=== PATIENT | female | born 1930 | race Caucasian/White ===

== ENCOUNTER 2017-05-21 08:53 | Inpatient (IN) | payer BC, OTHER ==
--- NOTE | 2017-05-21 09:19 | PDOC ---
History of Present Illness - General History Source: Patient, Family Exam Limitations: No Limitations - History of Present Illness Initial Comments: 05/21/17 09:47 The patient is an 86 year old female with a significant PMH of HTN, diabetes ( on Metformin), hyperlipidemia, and stroke who presents to the emergency department with hearing voices beginning sometime within the past 2 months. The patient notes that she regularly hears voices and becomes paranoid. Her son notes that the patient was in the [place] for a couple of months and her neighbors started noticing a change in her behavior within that time. The patients son visited the [facility] about 3 days ago to check on the patient, and brought her to [place] ED after becoming concerned. The patient s son notes that the patient had a stroke about 2 months ago that affected her right upper and lower extremities, and that she has occasionally mumbled her speech. The patients son also notes that the patient suffered a mechanical fall while in the [facility]. The patient also presents to the ED with an abscess in the abdominal area. The patients speech is slightly slurred upon presentation the ED. The patient denies chest pain, shortness of breath, headache and dizziness. Denies fever, chills, nausea, vomit, diarrhea and constipation. Denies dysuria, frequency, urgency and hematuria. Allergies: NKA Past surgical history: Vascular surgery for leg clot (2002). Social history: No reported cigarette, alcohol, or drug use. PCP: Dr. Taylor ([phone]) <Mark Brown - Last Filed: 05/21/17 09:56> <Rbob Wetzel - Last Filed: 05/21/17 11:21> - General Chief Complaint: Altered Mental Status Stated Complaint: abcess,ams x 4 days Time Seen by Provider: 05/21/17 09:17 NIH Stroke Scale - Initial Evaluation Level of consciousness: Alert Ask patient the month and their age: Answers both correctly Ask patient to open & close eyes; make fist and let go: Obeys both correctly Best gaze (horizontal eye movement): Normal Visual field testing: No visual field loss Facial paresis (Show teeth/raise eyebrows/close eyes tight): Normal symmetrical movement Motor Function: Left Arm: Normal Motor Function: Right Arm: Drift Motor Function: Left Leg: Normal (extends leg 30 degrees for 5 seconds without drift) Motor Function: Right Leg: Normal (extends leg 30 degrees for 5 seconds without drift) Limb Ataxia: Present in one limb Sensory(Use pinprick test arms,legs,trunk,face/side to side): Normal Best language (Describe picture, name items, read sentences): No Aphasia Dysarthria (read several words): Mild to moderate slurring of words Extinction and Inattention: No abnormality (last known well unknown, symptoms identified 05/18) - Total Score NIH Stroke Scale Score: 3 <Robb Wetzel - Last Filed: 05/21/17 11:21> tPA Exclusion checklist 3-4.5h - Thrombolytic Therapy Candidate Is patient eligible for thrombolytic therapy: No - Ineligibility reason(s) Reasons No tPA given: Outside of window - delayed arrival <Robb Wetzel - Last Filed: 05/21/17 11:21> Past History <Mark Brown - Last Filed: 05/21/17 09:56> - Past Medical History CVA: Yes (rt side residual) Diabetes: Yes HTN: Yes Hypercholesterolemia: Yes - Surgical History Cardiac Surgery: Yes (vena cava filter) - Psycho/Social/Smoking Cessation Hx Suicidal Ideation: No Smoking History: Never smoked <Robb Wetzel - Last Filed: 05/21/17 11:21> - Past Medical History Allergies/Adverse Reactions: Allergies Allergy/AdvReac Type Severity Reaction Status Date / Time No Known Allergies Allergy Verified 05/21/17 08:58 Home Medications: Ambulatory Orders Enoxaparin Sodium [Lovenox] 120 mg SQ DAILY 05/21/17 Glimepiride [Amaryl -] 4 mg PO DAILY@0700 05/21/17 Losartan Potassium 50 mg PO DAILY 05/21/17 Metformin HCl [Metformin HCl ER] 1,000 mg PO BID 05/21/17 Metoprolol Succinate [Toprol Xl -] 50 mg PO BID 05/21/17 Review of Systems - Review of Systems Able to Perform ROS?: (limited 2/2 dementia) Constitutional: No: Chills, Fever, Night Sweats Respiratory: No: Cough, Shortness of Breath Cardiac (ROS): No: Chest Pain, Syncope ABD/GI: No: Constipated, Diarrhea, Nausea, Vomiting Neurological: No: Headache All Other Systems: Reviewed and Negative <Robb Wetzel - Last Filed: 05/21/17 11:21> *Physical Exam - Vital Signs Last Vital Signs Temp Pulse Resp BP Pulse Ox 98.2 F 76 19 120/65 95 05/21/17 08:58 05/21/17 08:58 05/21/17 08:58 05/21/17 08:58 05/21/17 08:58 - Physical Exam Comments: 05/21/17 09:48 GENERAL: (+) Slightly disoriented. (+) Slight slurred speech. The patient is awake, alert, in no acute distress. HEAD: Normal with no signs of trauma. EYES: Pupils equal, round and reactive to light, extraocular movements intact, sclera anicteric, conjunctiva clear with no pallor. ENT: Ears normal, nares patent, oropharynx clear without exudates. Moist mucous membranes. NECK: Normal range of motion, supple without lymphadenopathy, JVD, or masses. LUNGS: (+) Crackles at right base. Breath sounds equal. HEART: Regular rate and rhythm, normal S1 and S2 without murmur or rub. ABDOMEN: (+) 8 cm. Subcutaneous hematoma in the suprapubic region with 2 cm. cellulitis (No discharge, fluctuance, or bleeding). Soft/nontender/ nondistended. BS wnl. No guarding or rebound. No hepatosplenomegaly. EXTREMITIES: 4/5 motor strength and spastic movement in RUE. 5/5 motor strength in RLE. Normal range of motion, no edema. No clubbing or cyanosis. No cords, erythema, or tenderness. NEUROLOGICAL: Cranial nerves II through XII grossly intact. Normal speech, normal gait. PSYCH: Normal mood, normal affect. SKIN: Warm, Dry, normal turgor, no rashes or lesions noted. <Mark Brown - Last Filed: 05/21/17 09:56> - Vital Signs Last Vital Signs Temp Pulse Resp BP Pulse Ox 98.2 F 76 19 120/65 95 05/21/17 08:58 05/21/17 08:58 05/21/17 08:58 05/21/17 08:58 05/21/17 08:58 <Robb Wetzel - Last Filed: 05/21/17 11:21> Heart Score/ECG Review #1 ECG reviewed & interpreted by me at: 10:06 General ECG Interpretation: Sinus Rhythm, Normal Rate (66), Normal Intervals ( qtc 404), No acute ischemic changes <Robb Wetzel - Last Filed: 05/21/17 11:21> ED Treatment Course - LABORATORY CBC & Chemistry Diagram: 05/21/17 09:50 05/21/17 09:50 <Robb Wetzel - Last Filed: 05/21/17 11:21> Medical Decision Making - Medical Decision Making 05/21/17 09:50 A portion of this note was documented by scribe services under my direction. I have reviewed the details of the note, within reason, and agree with the documentation with the following case summary and management plan written by me. 86-year-old female with history of hypertension, diabetes, high cholesterol, recent stroke in the last 2 months with residual right-sided weakness presents brought in by her son with altered mental status are unknown amount of time. Patient was high functioning and oriented when she went to the [place] 2 months ago, son visited her a few days ago and found her to be confused and occasionally having nonsensical speech and hearing voices. There was a fall in the last few weeks, unclear whether there was head injury. Denies any recent fevers or chills or infectious symptoms, she does have residual right -sided weakness since the stroke. No new medications, she was prescribed a benzodiazepine to help her sleep but it has not been working. Heart Her Back in the [place] and Brings Her Here for Evaluation. Vitals as noted and within normal limits. No acute distress Slightly slurred speech, right upper extremity 4-5 strength with some spastic movements Ecchymosis across the lower abdomen reportedly from anticoagulant injections, there is a moderate size about 8 cm hematoma in the lower abdomen with a small rim of cellulitis but no evidence of abscess 86-year-old female with altered mental status as per son, recent CVA. Question dementia with delirium, ? cva (unclear last known well without clear new focal deficits, so not a tpa candidate), troponin, rule out intracranial process or acute infectious or metabolic process, otherwise no other focal findings on exam aside from the cellulitis. Labs, urinalysis/urine culture Chest x-ray, CT head, EKG Antibiotic for abdominal wall cellulitis Likely admission 05/21/17 11:14 cbc wnl, cxr with large heart but no acute abnormality. CT head with chronic microvascular ischemic changes, frontal post-ischemic encephalomalacia which could be the cause of her presenting symptoms. Chem pending, then will admit for further neuro workup. <Robb Wetzel - Last Filed: 05/21/17 11:21> *DC/Admit/Observation/Transfer - Attestations Scribe Attestion: 05/21/17 09:48 Documentation prepared by Mark Brown, acting as medical technical writer for Robb Wetzel MD. <Mark Brown - Last Filed: 05/21/17 09:56> <Robb Wetzel - Last Filed: 05/21/17 11:21> Diagnosis at time of Disposition: Abdominal wall cellulitis, History of stroke Altered mental status Qualifiers: Altered mental status type: transient alteration of awareness Qualified Code(s) : R40.4 - Transient alteration of awareness Abdominal wall hematoma Qualifiers: Encounter type: initial encounter Qualified Code(s): S30.1XXA - Contusion of abdominal wall, initial encounter - Discharge Dispostion Condition at time of disposition: Stable - Referrals Referrals: Mary Beth Price MD [Primary Care Provider] -
[2017-05-21] MEDS ORDERED: AMPICILLIN NA/SULBACTAM NA 3 GM in SODIUM CHLORIDE 100 ML IVPB ONE (09:55)
[2017-05-21 10:03] LABS: BASOPHIL 0.7 % (0-2.0); EOSINOPHIL 1.9 % (0-4.5); MCH 25.9 pg (25.7-33.7); MCHC 32.6 g/dl (32.0-36.0); MEAN CELL VOLUME 79.6 fl (80-96); MEAN PLT VOLUME 8.4 fl (7.5-11.1); NEUTROPHILS 70.7 % (42.8-82.8); PLATELET COUNT 258 K/MM3 (134-434); RDW 15.4 % (11.6-15.6); WHITE BLOOD COUNT 7.6 K/mm3 (4.0-10.0)
[2017-05-21 10:15] LABS: URINE APPEARANCE CLEAR; URINE BILIRUBIN NEGATIVE (NEGATIVE); URINE BLOOD 1+ (NEGATIVE); URINE COLOR LTYELLOW; URINE GLUCOSE (UA) NEGATIVE (NEGATIVE); URINE KETONE NEGATIVE (NEGATIVE); URINE LEUK ESTERASE TRACE (NEGATIVE); URINE NITRITE NEGATIVE (NEGATIVE); URINE PROTEIN NEGATIVE (NEGATIVE); URINE UROBILINOGEN NEGATIVE mg/dL (0.2-1.0)
[2017-05-21 10:25] LABS: URINE RBC <1 /hpf (0-3); URINE WBC 3 /hpf (3-5)
[2017-05-21 10:26] LABS: ALBUMIN 3.4 g/dl (3.4-5.0); ANION GAP 10 (8-16); CALCIUM 9.1 mg/dL (8.5-10.1); CO2 27 mmol/L (21-32); CREATININE 1.1 mg/dL (0.55-1.02); GLUCOSE,RANDOM 162 mg/dL (74-106); SGOT/AST 30 U/L (15-37); SGPT/ALT 28 U/L (12-78)
[2017-05-21 10:40] LABS: INR 1.16 (0.82-1.09); PROTHROMBIN TIME (PATIENT) 12.8 SEC (9.98-11.88)
[2017-05-21 10:54] LABS: ALK PHOS 46 U/L (45-117); BILIRUBIN,TOTAL 0.9 mg/dL (0.2-1.0); CPK 380 IU/L (26-192); TOT PROT 7.3 g/dl (6.4-8.2); TROPONIN I < 0.02 ng/ml (0.00-0.05)
--- NOTE | 2017-05-21 12:15 | EKG ---
Test Reason : Blood Pressure : / mmHG Vent. Rate : 066 BPM Atrial Rate : 066 BPM P-R Int : 166 ms QRS Dur : 080 ms QT Int : 386 ms P-R-T Axes : 063 002 029 degrees QTc Int : 404 ms NORMAL SINUS RHYTHM NORMAL ECG NO PREVIOUS ECGS AVAILABLE Confirmed by NAREN VILLALBA MD ([id number]) on 05/21/2017 12:14:59 PM Referred By: Confirmed By:NAREN VILLALBA MD
--- NOTE | 2017-05-21 14:23 | HP ---
Admitting History and Physical - Primary Care Physician PCP: Mary Beth Price - Admission Chief Complaint: AMS History of Present Illness: This 86 year old female with a significant PMH of HTN, DM II (on Metformin), HLD , DVT, PE in 2000 surgical hx: Vascular surgery for leg clot (2002 at [facility] ), per [facility] records sustained a catastrophic thrombotic event in 2000 (and now on daily lovenox) and stroke presented to the ED with auditory hallucinations and AMS. Pt Son visited and after 3 days he found his mother altered and talking to herself. He asked her who she was talking to and she stated when she was talking she admitted to auditory hallucinations and he decided [place]. [place] at [place] baseline living with her children, she was in for 3 months when daughter moved. The son states around 2 months ago she suffered a stroke with right sided weakness and mumbled speech and is not at her baseline. Patient currently appears calm and is able to follow directions. She denies sob , cp, abd pain. She is hungry. Son also states she hasn't been sleeping and when she does she wakes up speaking nonsense. 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) Cardiovascular: Yes: HTN, Hyperlipdemia Heme/Onc: Yes: Other (thromobotic event 2000) Endocrine: Yes: Diabetes Mellitus - Smoking History Smoking history: Never smoked - Alcohol/Substance Use Hx Alcohol Use: No History of Substance Use: reports: None - Social History Usual Living Arrangement: Yes: With Child ADL: Family Assistance History of Recent Travel: Yes (Returned from 05/20) Home Medications - Allergies Allergies/Adverse Reactions: Allergies Allergy/AdvReac Type Severity Reaction Status Date / Time No Known Allergies Allergy Verified 05/21/17 08:58 - Home Medications Home Medications: Ambulatory Orders Enoxaparin Sodium [Lovenox] 120 mg SQ DAILY 05/21/17 Glimepiride [Amaryl -] 4 mg PO DAILY@0700 05/21/17 Losartan Potassium 50 mg PO DAILY 05/21/17 Metformin HCl [Metformin HCl ER] 1,000 mg PO BID 05/21/17 Metoprolol Succinate [Toprol Xl -] 50 mg PO BID 05/21/17 Review of Systems - Review of Systems Constitutional: reports: No Symptoms Eyes: reports: No Symptoms HENT: reports: No Symptoms Neck: reports: No Symptoms Cardiovascular: reports: No Symptoms Respiratory: reports: No Symptoms Gastrointestinal: reports: No Symptoms Genitourinary: reports: No Symptoms Musculoskeletal: reports: No Symptoms Integumentary: reports: No Symptoms Neurological: reports: Change in LOC, Confusion, Weakness (right side) Psychiatric: reports: Altered Sleep Pattern Physical Examination Vital Signs: Vital Signs Temperature 98.2 F 05/21/17 08:58 Pulse Rate 61 05/21/17 13:10 Respiratory Rate 20 05/21/17 13:10 Blood Pressure 143/77 05/21/17 13:10 O2 Sat by Pulse Oximetry (%) 97 05/21/17 13:10 Constitutional: Yes: Calm Eyes: Yes: Conjunctiva Clear Neck: Yes: Supple Cardiovascular: Yes: Regular Rate and Rhythm, S1, S2 Respiratory: Yes: Regular, CTA Bilaterally Gastrointestinal: Yes: Normal Bowel Sounds, Soft, Other (lower abdominal hematomas lower abd induraded mass with hematoma) Extremities: Yes: WNL Edema: No Neurological: Yes: Alert, Oriented, Cran Nerves II-XII Intact, Other (motor: RUE 4/5, RLE 5/5 follows direction, able to answer qustions) Psychiatric: Yes: Alert, Oriented Imaging - Results X-ray: Report Reviewed, Image Reviewed (no acute pathology) Cat Scan: Image Reviewed (no acute intercranial hemorrhage, chronic post ischemic encephalomalacia right frontal lobe, no acute territorial ischemic changes,) Assessment/Plan Assessment: 86 year old female admitted with AMS and recent cva ~ 2 months ago Plan: 1. AMS - Head CT negative for acute changes - AMS possibly referable to post CVA penumbra - Brain MRI r/o CVA as pt with slurred speech in ED - Start ASA 81mg daily - B12, TSH, UA levels - Neuro consult requested 2. HTN - Continue toprol xl 50mg BID - Losartan 25mg daily 3. hx of CVA/PE - Pt sustained a catastrophic thrombotic event involving arterial and venous systems in 2000 at [facility]. Due to this she is on daily lovenox 120mg sq and should not be stopped. - To reiterate with family this should not be discontinued 4. DM II - Hold metformin - ISS, BGM ACHS - Diabetic diet 5. lower abdominal collection/hematoma? - Abd US ordered Visit type - Emergency Visit Emergency Visit: Yes ED Registration Date: 05/21/17 Care time: The patient presented to the Emergency Department on the above date and was hospitalized for further evaluation of their emergent condition. - New Patient This patient is new to me today: Yes Date on this admission: 05/22/17 - Critical Care Critical Care patient: No
[2017-05-21 15:13] VITALS: BMI 28.2
--- NOTE | 2017-05-21 17:47 | CON.NEURO ---
Consult - History of Present Illness History of Present Illness: 86 year old female with a significant PMH of HTN, DM II (on Metformin), AFIB , HLD, DVT, PE in 2000 surgical hx, requiring lifelong AC as per HEM: Vascular surgery for leg clot (2002 at [facility])and stroke presented to the ED with auditory hallucinations and AMS. As per team , Pt Son visited and after 3 days he found his mother altered and talking to herself. He asked her who she was talking to and she stated when she was talking she admitted to auditory hallucinations and he decided [place]. [place] living with her children, she was in for 3 months when daughter moved. The son states around 2 months ago she suffered a stroke with right sided weakness and mumbled speech and is not at her baseline. Patient currently appears calm and is able to follow directions. She denies sob , cp, abd pain. She is hungry. Son also states she hasn't been sleeping and when she does she wakes up speaking nonsense. 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) Cardio/Vascular: Yes: HTN, Hyperlipdemia ...: No Endocrine: Yes: Diabetes Mellitus - Alcohol/Substance Use Hx Alcohol Use: No History of Substance Use: reports: None - Smoking History Smoking history: Never smoked - Social History ADL: Family Assistance History of Recent Travel: Yes (Returned from 05/20) Home Medications - Allergies Allergies/Adverse Reactions: Allergies Allergy/AdvReac Type Severity Reaction Status Date / Time No Known Allergies Allergy Verified 05/21/17 08:58 - Home Medications Home Medications: Ambulatory Orders Enoxaparin Sodium [Lovenox] 120 mg SQ DAILY 05/21/17 Glimepiride [Amaryl -] 4 mg PO DAILY@0700 05/21/17 Losartan Potassium 50 mg PO DAILY 05/21/17 Metformin HCl [Metformin HCl ER] 1,000 mg PO BID 05/21/17 Metoprolol Succinate [Toprol Xl -] 50 mg PO BID 05/21/17 Physical Exam-Neuro Vital Signs: Vital Signs Temperature 97.7 F 05/21/17 14:48 Pulse Rate 60 05/21/17 14:48 Respiratory Rate 18 05/21/17 14:48 Blood Pressure 156/68 05/21/17 14:48 O2 Sat by Pulse Oximetry (%) 97 05/21/17 13:10 Labs: INR, PTT INR 1.16 (0.82-1.09) H 05/21/17 09:50 CBCD WBC 7.6 K/mm3 (4.0-10.0) 05/21/17 09:50 RBC 5.32 M/mm3 (3.60-5.2) H 05/21/17 09:50 Hgb 13.8 GM/dL (10.7-15.3) 05/21/17 09:50 Hct 42.3 % (32.4-45.2) 05/21/17 09:50 MCV 79.6 fl (80-96) L 05/21/17 09:50 MCHC 32.6 g/dl (32.0-36.0) 05/21/17 09:50 RDW 15.4 % (11.6-15.6) 05/21/17 09:50 Plt Count 258 K/MM3 (134-434) 05/21/17 09:50 MPV 8.4 fl (7.5-11.1) 05/21/17 09:50 CMP Sodium 140 mmol/L (136-145) 05/21/17 09:50 Potassium 4.0 mmol/L (3.5-5.1) 05/21/17 09:50 Chloride 103 mmol/L (98-107) 05/21/17 09:50 Carbon Dioxide 27 mmol/L (21-32) 05/21/17 09:50 Anion Gap 10 (8-16) 05/21/17 09:50 BUN 12 mg/dL (7-18) 05/21/17 09:50 Creatinine 1.1 mg/dL (0.55-1.02) H 05/21/17 09:50 Creat Clearance w eGFR 46.98 (>60) 05/21/17 09:50 Calcium 9.1 mg/dL (8.5-10.1) 05/21/17 09:50 Total Bilirubin 0.9 mg/dL (0.2-1.0) 05/21/17 09:50 AST 30 U/L (15-37) 05/21/17 09:50 ALT 28 U/L (12-78) 05/21/17 09:50 Alkaline Phosphatase 46 U/L (45-117) 05/21/17 09:50 Total Protein 7.3 g/dl (6.4-8.2) 05/21/17 09:50 Albumin 3.4 g/dl (3.4-5.0) 05/21/17 09:50 Problem List - Problems (1) Altered mental status Code(s): R41.82 - ALTERED MENTAL STATUS, UNSPECIFIED Qualifiers: Altered mental status type: transient alteration of awareness Qualified Code(s): R40.4 - Transient alteration of awareness (2) H/O: CVA (cerebrovascular accident) Code(s): Z86.73 - PRSNL HX OF TIA (TIA), AND CEREB INFRC W/O RESID DEFICITS (3) Dementia Code(s): F03.90 - UNSPECIFIED DEMENTIA WITHOUT BEHAVIORAL DISTURBANCE Assessment/Plan 86 year old female with a significant PMH of HTN, DM II (on Metformin), AFIB , HLD, DVT, PE in 2000 surgical hx, requiring lifelong AC as per HEM, suspect progressive dementia, worse with environment changes; hallucinations etc --? component of LBD, r/o delirium await scans and will see her after MRI BRAIN may continue AC FU TSH, B12 Dr Dominguez
[2017-05-21] MEDS: INSULIN (NOVOLOG) ASPART 100 UNITS/ML 10ML VIAL SQ SCH ×2 (18:15→21:44)
[2017-05-21] MEDS: METOPROLOL SUCCINATE 50 MG TAB.SR.24H (FP) PO SCH (21:44)
[2017-05-21] MEDS: HEPARIN NA (PORCINE) 5,000 UNITS/ML 1ML VIAL SQ SCH (21:44)
[2017-05-22] MEDS: INSULIN (NOVOLOG) ASPART 100 UNITS/ML 10ML VIAL SQ SCH ×4 (06:52→22:03)
[2017-05-22] MEDS: HEPARIN NA (PORCINE) 5,000 UNITS/ML 1ML VIAL SQ SCH (06:52)
[2017-05-22] MEDS: LOSARTAN POTASSIUM 50 MG TABLET (FP) PO SCH ×2 (08:25→09:05)
[2017-05-22] MEDS: ASPIRIN 81 MG CHEWABLE TABLETS PO SCH ×2 (08:25→09:05)
[2017-05-22] MEDS: METOPROLOL SUCCINATE 50 MG TAB.SR.24H (FP) PO SCH ×2 (08:25→09:05)
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
[2017-05-22 08:54] LABS: BASOPHIL 0.8 % (0-2.0); EOSINOPHIL 1.5 % (0-4.5); MCH 25.9 pg (25.7-33.7); MCHC 32.2 g/dl (32.0-36.0); MEAN CELL VOLUME 80.5 fl (80-96); MEAN PLT VOLUME 8.9 fl (7.5-11.1); NEUTROPHILS 59.8 % (42.8-82.8); PLATELET COUNT 286 K/MM3 (134-434); RDW 15.6 % (11.6-15.6); WHITE BLOOD COUNT 7.8 K/mm3 (4.0-10.0)
[2017-05-22 09:26] LABS: ALBUMIN 3.6 g/dl (3.4-5.0); ANION GAP 12 (8-16); CALCIUM 9.4 mg/dL (8.5-10.1); CO2 25 mmol/L (21-32); GLUCOSE,RANDOM 131 mg/dL (74-106)
[2017-05-22 09:37] LABS: ALK PHOS 53 U/L (45-117); BILIRUBIN,TOTAL 1.1 mg/dL (0.2-1.0); SGOT/AST 27 U/L (15-37); SGPT/ALT 28 U/L (12-78); THYROID STIMULATING HORMONE 1.06 uIU/ml (0.358-3.74); TOT PROT 7.6 g/dl (6.4-8.2)
[2017-05-22] MEDS ORDERED: PT OWN MED DRAWER 7, Y5N ONE (10:50)
[2017-05-22] MEDS: ENOXAPARIN NA (PORCINE) 120 MG/0.8 ML DISP.SYRIN SQ SCH (10:52)
--- NOTE | 2017-05-22 16:39 | PN ---
Progress Note (short form) - Note Progress Note: Vascular surgery Pt seen and examined. Abdominal hematoma from lovenox injections. Warm compresses to area. No need for exploration will follow Kade Weston DO
--- NOTE | 2017-05-22 16:58 | PN ---
Physical Exam: SUBJECTIVE: Patient seen and examined at the bedside. States she feels well. Denies any hallucinations. OBJECTIVE: Vital Signs Period Temp Pulse Resp BP Sys/Cruz Pulse Ox Last 24 Hr 97.4 F-98.2 F 62-84 16-20 151-178/84-102 GENERAL: The patient is awake, alert, and fully oriented, in no acute distress. HEAD: Normal with no signs of trauma. EYES: PERRL, extraocular movements intact, sclera anicteric, conjunctiva clear. No ptosis. ENT: Ears normal, nares patent, oropharynx clear without exudates, moist mucous membranes. NECK: Trachea midline, full range of motion, supple. LUNGS: Breath sounds equal, clear to auscultation bilaterally ABDOMEN: Soft, nontender, nondistended,bruising, multiple areas of bruising and hematoma to lower abdomen EXTREMITIES: no edema. NEUROLOGICAL: Normal speech, unsteady gait, periods of confusion Laboratory Results - last 24 hr 05/21/17 05/21/17 05/22/17 17:16 21:43 06:51 WBC RBC Hgb Hct MCV MCH MCHC RDW Plt Count MPV Neutrophils % Lymphocytes % Monocytes % Eosinophils % Basophils % Sodium Potassium Chloride Carbon Dioxide Anion Gap BUN Creatinine Creat Clearance w eGFR POC Glucometer 171 83 139 Random Glucose Calcium Magnesium Total Bilirubin AST ALT Alkaline Phosphatase Total Protein Albumin Vitamin B12 TSH 05/22/17 05/22/17 05/22/17 07:00 07:30 07:30 WBC 7.8 RBC 5.58 H Hgb 14.5 Hct 44.9 MCV 80.5 MCH 25.9 MCHC 32.2 RDW 15.6 Plt Count 286 MPV 8.9 Neutrophils % 59.8 Lymphocytes % 27.7 D Monocytes % 10.2 Eosinophils % 1.5 Basophils % 0.8 Sodium 140 Potassium 4.1 Chloride 103 Carbon Dioxide 25 Anion Gap 12 BUN 11 Creatinine 1.0 Creat Clearance w eGFR 52.45 POC Glucometer Random Glucose 131 H Calcium 9.4 Magnesium 1.8 Total Bilirubin 1.1 H D AST 27 ALT 28 Alkaline Phosphatase 53 Total Protein 7.6 Albumin 3.6 Vitamin B12 TSH 1.06 05/22/17 05/22/17 07:30 11:38 WBC RBC Hgb Hct MCV MCH MCHC RDW Plt Count MPV Neutrophils % Lymphocytes % Monocytes % Eosinophils % Basophils % Sodium Potassium Chloride Carbon Dioxide Anion Gap BUN Creatinine Creat Clearance w eGFR POC Glucometer 116 Random Glucose Calcium Magnesium Total Bilirubin AST ALT Alkaline Phosphatase Total Protein Albumin Vitamin B12 302 TSH Active Medications Generic Name Dose Route Start Last Admin Trade Name Yomaira PRN Reason Stop Dose Admin Aspirin 81 mg 05/22/17 10:00 05/22/17 09:05 Asa - PO Not Given DAILY [facility] Enoxaparin Sodium 120 mg 05/22/17 10:00 05/22/17 10:52 Lovenox - SQ 120 mg DAILY [facility]IE Administration Insulin Aspart 1 units 05/21/17 16:30 05/22/17 16:40 Novolog Vial SQ Not Given ACHS [facility] Protocol Losartan Potassium 50 mg 05/22/17 10:00 05/22/17 09:05 Cozaar - PO Not Given DAILY [facility] Metoprolol Succinate 50 mg 05/21/17 22:00 05/22/17 09:05 Toprol Xl - PO Not Given BID [facility] ASSESSMENT/PLAN: Patient is an 86 year old female with a significant past medical history of HTN , DM II (on Metformin), AFIB , HLD, DVT, PE in 2000 surgical hx, requiring lifelong Lovenox. She was admitted on 05/21/2017 for AMS. Neuro: Altered mental status A/P: Head CT 05/21/2017 with no evidence of ICH, chronic post ischemic encephalomalacia, right frontal lobe, no CT evidence of acute territorial ischemicl changes. Brain MRI 05/21/2017 shows no acute infarct, right frontal cortica/subcortical chronic infarct. Small chronic bilateral cerebellar infarcts seen. 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 Fluids: Monitor PO intake Electrolytes: monitor Nutrition: diabetic diet Prophylaxis: DVT: Lovenox 120mg daily GI: deferred Disposition: Anticipate d/c tomorrow with home VNS. Full code. Visit type - Emergency Visit Emergency Visit: Yes ED Registration Date: 05/21/17 Care time: The patient presented to the Emergency Department on the above date and was hospitalized for further evaluation of their emergent condition. - New Patient This patient is new to me today: Yes Date on this admission: 05/22/17 - Critical Care Critical Care patient: No - Discharge Referral Referred to [facility] Med P.C.: No
[2017-05-22] MEDS: INSULIN SLIDING SCALE (NOVOLOG) 1 VIAL SQ SCH (22:02)
[2017-05-22] MEDS: METOPROLOL SUCCINATE 25 MG TAB.SR.24H (FP) PO SCH (22:03)
[2017-05-23] MEDS: INSULIN SLIDING SCALE (NOVOLOG) 1 VIAL SQ SCH ×4 (06:16→21:55)
[2017-05-23 08:47] LABS: BASOPHIL 1.2 % (0-2.0); EOSINOPHIL 2.2 % (0-4.5); MCH 26.3 pg (25.7-33.7); MCHC 32.5 g/dl (32.0-36.0); MEAN CELL VOLUME 80.8 fl (80-96); MEAN PLT VOLUME 8.6 fl (7.5-11.1); NEUTROPHILS 61.8 % (42.8-82.8); PLATELET COUNT 315 K/MM3 (134-434); RDW 15.4 % (11.6-15.6); WHITE BLOOD COUNT 7.8 K/mm3 (4.0-10.0)
[2017-05-23 09:19] LABS: ALBUMIN 3.8 g/dl (3.4-5.0); ANION GAP 12 (8-16); CALCIUM 9.7 mg/dL (8.5-10.1); CO2 27 mmol/L (21-32); GLUCOSE,RANDOM 141 mg/dL (74-106); SGOT/AST 22 U/L (15-37); SGPT/ALT 28 U/L (12-78)
[2017-05-23 09:21] LABS: ALK PHOS 53 U/L (45-117); BILIRUBIN,TOTAL 1.2 mg/dL (0.2-1.0); TOT PROT 7.9 g/dl (6.4-8.2)
[2017-05-23] MEDS ORDERED: PT OWN MED DRAWER 7, Y5N ONE (09:32)
--- NOTE | 2017-05-23 09:33 | DS ---
Physical Exam: SUBJECTIVE: Patient seen and examined. Daughter at the bedside, states patient is restless at times. OBJECTIVE: Will start on Seroquel 25mg BID now, patient to follow up with her PCP in 1 week , daughter in agreement and will make appointment. Vital Signs Period Temp Pulse Resp BP Sys/Cruz Pulse Ox Last 24 Hr 97.8 F-98.4 F 68-79 18-20 149-178/72-100 PHYSICAL EXAM GENERAL: The patient is awake, alert, and fully oriented, in no acute distress. HEAD: Normal with no signs of trauma. EYES: PERRL, extraocular movements intact, sclera anicteric, conjunctiva clear. No ptosis. ENT: Ears normal, nares patent, oropharynx clear without exudates, moist mucous membranes. NECK: Trachea midline, full range of motion, supple. LUNGS: Breath sounds equal, clear to auscultation bilaterally ABDOMEN: Soft, nontender, nondistended,bruising, multiple areas of bruising and hematoma to lower abdomen EXTREMITIES: no edema. NEUROLOGICAL: Normal speech, unsteady gait, periods of confusion LABS Laboratory Results - last 24 hr 05/22/17 05/22/17 05/22/17 07:00 07:30 07:30 WBC RBC Hgb Hct MCV MCH MCHC RDW Plt Count MPV Neutrophils % Lymphocytes % Monocytes % Eosinophils % Basophils % Sodium 140 Potassium 4.1 Chloride 103 Carbon Dioxide 25 Anion Gap 12 BUN 11 Creatinine 1.0 Creat Clearance w eGFR 52.45 POC Glucometer Random Glucose 131 H Calcium 9.4 Magnesium 1.8 Total Bilirubin 1.1 H D AST 27 ALT 28 Alkaline Phosphatase 53 Total Protein 7.6 Albumin 3.6 Vitamin B12 302 TSH 1.06 05/22/17 05/22/17 05/22/17 11:38 16:38 21:58 WBC RBC Hgb Hct MCV MCH MCHC RDW Plt Count MPV Neutrophils % Lymphocytes % Monocytes % Eosinophils % Basophils % Sodium Potassium Chloride Carbon Dioxide Anion Gap BUN Creatinine Creat Clearance w eGFR POC Glucometer 116 94 175 Random Glucose Calcium Magnesium Total Bilirubin AST ALT Alkaline Phosphatase Total Protein Albumin Vitamin B12 TSH 05/23/17 05/23/17 05/23/17 06:15 07:35 07:35 WBC 7.8 RBC 5.82 H Hgb 15.3 Hct 47.0 H MCV 80.8 MCH 26.3 MCHC 32.5 RDW 15.4 Plt Count 315 MPV 8.6 Neutrophils % 61.8 Lymphocytes % 25.5 Monocytes % 9.3 Eosinophils % 2.2 Basophils % 1.2 Sodium 140 Potassium 4.4 Chloride 101 Carbon Dioxide 27 Anion Gap 12 BUN 14 D Creatinine 1.0 Creat Clearance w eGFR 52.45 POC Glucometer 139 Random Glucose 141 H Calcium 9.7 Magnesium Total Bilirubin 1.2 H AST 22 ALT 28 Alkaline Phosphatase 53 Total Protein 7.9 Albumin 3.8 Vitamin B12 TSH HOSPITAL COURSE: Date of Admission:05/21/17 Date of Discharge: 05/23/17 ASSESSMENT/PLAN: Patient is an 86 year old female with a significant past medical history of HTN , DM II (on Metformin), AFIB , HLD, DVT, PE in 2000 surgical hx, requiring lifelong Lovenox. She was admitted on 05/21/2017 for AMS. Neuro: Altered mental status - likely chronic/advancing dementia A/P: Head CT 05/21/2017 with no evidence of ICH, chronic post ischemic encephalomalacia, right frontal lobe, no CT evidence of acute territorial ischemicl changes. Brain MRI 05/21/2017 shows no acute infarct, right frontal cortica/subcortical chronic infarct. Small chronic bilateral cerebellar infarcts seen. 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 Full code. Minutes to complete discharge: 60 Discharge Summary Reason For Visit: HISTORY OF STROKE; ALTERED MENTAL STATUS Current Active Problems Abdominal wall cellulitis (Acute) Abdominal wall hematoma (Acute) Altered mental status (Acute) Dementia (Acute) H/O: CVA (cerebrovascular accident) (Acute) Condition: Improved - Instructions Diet, Activity, Other Instructions: Mrs. Cortes: Please see your primary care physician for follow up within 1 week after discharge. Please return to the ER with any persistent or worsening symptoms. New medications: Seroquel 25mg twice per day at 7am and 7pm Metoprolol 75mg twice per = This dose was increased from your home dose of Metoprolol 50mg BID [facility] [phone] Referrals: Mary Beth Price MD [Primary Care Provider] - 1 Week Disposition: HOME - Home Medications Comprehensive Discharge Medication List: Ambulatory Orders Enoxaparin Sodium [Lovenox] 120 mg SQ DAILY 05/21/17 Glimepiride [Amaryl -] 4 mg PO DAILY@0700 05/21/17 Losartan Potassium 50 mg PO DAILY 05/21/17 Metformin HCl [Metformin HCl ER] 1,000 mg PO BID 05/21/17 Metoprolol Succinate [Toprol Xl -] 50 mg PO BID 05/21/17 Aspirin [ASA -] 81 mg PO DAILY tab.chew 05/23/17 Metoprolol Succinate [Toprol XL -] 75 mg PO BID #100 tab 05/23/17 Quetiapine Fumarate [Seroquel -] 25 mg PO BID #60 tab 05/23/17 This patient is new to me today: No Emergency Visit: Yes ED Registration Date: 05/21/17 Care time: The patient presented to the Emergency Department on the above date and was hospitalized for further evaluation of their emergent condition. Critical Care patient: No - Discharge Referral Referred to [facility] Med P.C.: No
[2017-05-23] MEDS: ASPIRIN 81 MG CHEWABLE TABLETS PO SCH (09:36)
[2017-05-23] MEDS: METOPROLOL SUCCINATE 25 MG TAB.SR.24H (FP) PO SCH (09:36)
[2017-05-23] MEDS: LOSARTAN POTASSIUM 50 MG TABLET (FP) PO SCH (09:36)
[2017-05-23] MEDS: ENOXAPARIN NA (PORCINE) 120 MG/0.8 ML DISP.SYRIN SQ SCH (09:36)
[2017-05-23] MEDS ORDERED: QUEtiapine FUMARATE 25 MG TABLET (FP) PO SCH (10:00)
[2017-05-23] MEDS ORDERED: SODIUM CHLORIDE 1,000 ML IV STA (12:11)
[2017-05-23] MEDS ORDERED: METOPROLOL SUCCINATE 25 MG TAB.SR.24H (FP) PO SCH (12:19)
--- NOTE | 2017-05-23 12:24 | RAPID ---
Physical Examination Vital Signs: Vital Signs Temperature 98.2 F 05/23/17 10:00 Pulse Rate 92 H 05/23/17 10:00 Respiratory Rate 18 05/23/17 10:00 Blood Pressure 136/72 05/23/17 10:00 O2 Sat by Pulse Oximetry (%) 97 05/21/17 13:10 Constitutional: Yes: Anxious, [place] Neck: Yes: Supple Cardiovascular: Yes: Pulse Irregular Respiratory: Yes: Accessory Muscle Use Gastrointestinal: Yes: Normal Bowel Sounds ...Rectal Exam: Yes: Deferred Edema: LUE: Trace, RUE: Trace, LLE: Trace, RLE: Trace Integumentary: Yes: Bruising Neurological: Yes: Unsteady Gait, Weakness Psychiatric: Yes: Agitated Labs: CBC, BMP 05/23/17 07:35 05/23/17 07:35 Rapid Response - Rapid Response Assessment: Informed by primary RN that patient's blood pressure was 60/40 with worsening confusion On exam, patient was laying in the bed, minimally responsive to verbal stimuli + pallorous BP 70/40, no facial droop noted, responsive to tactile stimuli, slurred speech Was given Seroquel 25mg one hour prior Last seen at her baseline by primary RN at 11:am. today Mynor cruz called Orders stat head ct, 1 liter fluid bolus, cbc, cmp, trop, ekg BP recheck 110/50 neurology called, awaiting call back Suspected CVA - Suspected CVA CT Stroke ordered: Yes Stat "Code Kuo" Consult to Neurology called: Yes Last Known Well (Date): 05/23/17 Last Known Well (Time): 11:00 Symptom Discovery (Date): 05/23/17 Symptom Discovery (Time): 12:05
[2017-05-23] MEDS ORDERED: SODIUM CHLORIDE 1,000 ML IV SCH (13:15)
[2017-05-23 14:02] LABS: BASOPHIL 0.7 % (0-2.0); MCHC 32.3 g/dl (32.0-36.0); MEAN CELL VOLUME 80.3 fl (80-96); MEAN PLT VOLUME 8.3 fl (7.5-11.1); NEUTROPHILS 74.7 % (42.8-82.8); PLATELET COUNT 286 K/MM3 (134-434); RDW 15.3 % (11.6-15.6)
[2017-05-23 14:46] LABS: ALBUMIN 3.4 g/dl (3.4-5.0); ANION GAP 12 (8-16); BILIRUBIN,TOTAL 0.9 mg/dL (0.2-1.0); CALCIUM 9.1 mg/dL (8.5-10.1); CO2 26 mmol/L (21-32); CREATININE 1.4 mg/dL (0.55-1.02); GLUCOSE,RANDOM 133 mg/dL (74-106); SGOT/AST 19 U/L (15-37); SGPT/ALT 25 U/L (12-78); TOT PROT 6.8 g/dl (6.4-8.2)
[2017-05-23 14:47] LABS: ALK PHOS 50 U/L (45-117)
--- NOTE | 2017-05-23 15:13 | PN ---
Progress Note, Physician Chief Complaint: AMS History of Present Illness: 86 year old female with a significant PMH of HTN, DM II (on Metformin), AFIB , HLD, DVT, PE in 2000 surgical hx, requiring lifelong AC as per HEM. F/U: Pt was admitted for dementia , AMS , ? delirium. Pt has had MRI brain yesterday which was -ve for acute stroke. Pt received the first dose of seroquel and become hypotensive after that, and more lethargic ; CTH wo repeated was -ve for acute events ; pt MS is improved and back to her baseline. - Current Medication List Current Medications: Active Medications Aspirin (Asa -) 81 mg PO DAILY [facility] Last Admin: 05/23/17 09:36 Dose: 81 mg Enoxaparin Sodium (Lovenox -) 120 mg SQ DAILY [facility] Last Admin: 05/23/17 09:36 Dose: 120 mg Sodium Chloride (Normal Saline -) 1,000 mls @ 75 mls/hr IV ASDIR [facility] Last Admin: 05/23/17 13:51 Dose: 75 mls/hr Insulin Aspart (Novolog Vial Sliding Scale -) 1 vial SQ ACHS [facility] PRN Reason: Protocol Last Admin: 05/23/17 11:55 Dose: Not Given Losartan Potassium (Cozaar -) 50 mg PO DAILY [facility] Last Admin: 05/23/17 09:36 Dose: 50 mg Metoprolol Succinate (Toprol Xl -) 50 mg PO BID [facility] - Objective Vital Signs: Vital Signs Temperature 98.2 F 05/23/17 14:30 Pulse Rate 76 05/23/17 14:30 Respiratory Rate 14 05/23/17 14:30 Blood Pressure 156/74 05/23/17 14:30 O2 Sat by Pulse Oximetry (%) 97 05/21/17 13:10 Constitutional: Yes: Well Nourished Eyes: Yes: EOM Intact HENT: Yes: Atraumatic, Normocephalic Neck: Yes: Supple Cardiovascular: Yes: Regular Rate and Rhythm Respiratory: Yes: Regular, CTA Bilaterally Musculoskeletal: Yes: WNL Edema: No Neurological: Yes: Alert (A & O to self ; PERRLA , EOMI ; no dysarthria , no face asymmetria or gaze preference Motor: Moves all exts ; mild weakness R UE 4+ /5 , WE/F 4-/5 Sensory : Int LT) Labs: CBC, BMP 05/23/17 13:45 05/23/17 13:45 INR, PTT INR 1.16 (0.82-1.09) H 05/21/17 09:50 - ....Imaging Cat Scan: Report Reviewed, Image Reviewed (CTH wo, no acute events .) Problem List - Problems (1) Altered mental status Code(s): R41.82 - ALTERED MENTAL STATUS, UNSPECIFIED Qualifiers: Altered mental status type: transient alteration of awareness Qualified Code(s): R40.4 - Transient alteration of awareness (2) Dementia Code(s): F03.90 - UNSPECIFIED DEMENTIA WITHOUT BEHAVIORAL DISTURBANCE (3) H/O: CVA (cerebrovascular accident) Code(s): Z86.73 - PRSNL HX OF TIA (TIA), AND CEREB INFRC W/O RESID DEFICITS Assessment/Plan 86 year old female with a significant PMH of HTN, DM II (on Metformin), AFIB , HLD, DVT, PE in 2000 surgical hx, requiring lifelong AC as per HEM. Dementia , ? vascular and progressive ; pt become hypotensive after taking first dose of seroquel , now back to her baseline; MS has improved ; CTH wo no acute events . Recommendation: - AMS msl due to hypotension 2/2 seroquel ; no need to repeat MRI brain was done yesterday indicated old R frontal and b/l cerebellar infarct . -D/C seroquel -C/W AC home dose -PT/OT -Psych consult for auditory hallucination Health maintenance per primary team. Thank you. RUPERTO Lutz MD
--- NOTE | 2017-05-23 15:34 | CON.PSY ---
Psychiatry Consult Chief Complaint: Spoke to Son in detail. patient is confused ang gearing something and repeating herself. History of stoke. Symptoms: reports: Hallucinations - Previous Psychiatric Treatment Outpatient: None Inpatient: None - Previous Substance Abuse Treatment Outpatient: None Inpatient: None - Current Medications Current Medications: Active Medications Aspirin (Asa -) 81 mg PO DAILY [facility] Last Admin: 05/23/17 09:36 Dose: 81 mg Enoxaparin Sodium (Lovenox -) 120 mg SQ DAILY [facility] Last Admin: 05/23/17 09:36 Dose: 120 mg Sodium Chloride (Normal Saline -) 1,000 mls @ 75 mls/hr IV ASDIR [facility] Last Admin: 05/23/17 13:51 Dose: 75 mls/hr Insulin Aspart (Novolog Vial Sliding Scale -) 1 vial SQ ACHS [facility] PRN Reason: Protocol Last Admin: 05/23/17 11:55 Dose: Not Given Losartan Potassium (Cozaar -) 50 mg PO DAILY [facility] Last Admin: 05/23/17 09:36 Dose: 50 mg Metoprolol Succinate (Toprol Xl -) 50 mg PO BID [facility] - Allergies Allergies: Allergies Allergy/AdvReac Type Severity Reaction Status Date / Time No Known Allergies Allergy Verified 05/21/17 08:58 - Current Living Status Usual Living Arrangement: With Significant Other - Current Mental Status Evaluation Appearance: Disheveled Attitude: Guarded - Affect Affect: Constrictive Appropriateness: Not Appropriate - Mood Mood: Anxious - Speech/Language Expressive: Delayed - Psychomotor Activity Psychomotor Activity: Slowed - Thought Process Thought Process: Circumstantial - Thought Content Hallucinations: Present Type: Auditory Delusions: Absent - Self Perception Self Perception: Depersonalization - Cognition Attention: Diminished Orientation: Time, Person Memory, Immediate Recall: Impaired Memory, Short Term: 1/3 Memory, Remote with Promptin/3 - Concentration Serial Sevens Intact: No Simple Calculations Intact: No - Abstraction Proverb Interpretation: Impaired Judgement: Minimally Impaired - Impulse Control Impulse Control: Good Control - Suicidal Ideation Suicidal Ideation: No - Homicidal Ideation Homicidal Ideation: No Assessment/Plan start Risperidal 0.5mg po od for ? hallucinations.
--- NOTE | 2017-05-23 18:59 | PN ---
Progress Note (short form) - Note Progress Note: Chief Complaint: Events noted notes reviewed, son at the bedside denies any chest pain or dyspnea History of Present Illness: Seen and examined on telemetry. Full consult dictated - Current Medication List Current Medications Aspirin (Asa -) 81 mg PO DAILY [facility] Last Admin: 05/23/17 09:36 Dose: 81 mg Enoxaparin Sodium (Lovenox -) 120 mg SQ DAILY [facility] Last Admin: 05/23/17 09:36 Dose: 120 mg Sodium Chloride (Normal Saline -) 1,000 mls @ 75 mls/hr IV ASDIR [facility] Last Admin: 05/23/17 13:51 Dose: 75 mls/hr Insulin Aspart (Novolog Vial Sliding Scale -) 1 vial SQ ACHS [facility] PRN Reason: Protocol Last Admin: 05/23/17 17:50 Dose: Not Given Losartan Potassium (Cozaar -) 50 mg PO DAILY [facility] Last Admin: 05/23/17 09:36 Dose: 50 mg Metoprolol Succinate (Toprol Xl -) 50 mg PO BID [facility] Risperidone (Risperdal -) 0.5 mg PO DAILY [facility] - Review of Systems Constitutional: denies: Chills, Fever Cardiovascular: As Noted Above Respiratory: denies: Cough or Sputum Production Gastrointestinal: denies: Nausea, Vomiting, Diarrhea, Constipation or Abdominal Discomfort Musculoskeletal: No symptoms Reported Neurological: denies: Dizziness or Headaches - Objective Vital Signs: Last Vital Signs Temp Pulse Resp BP Pulse Ox 97.3 F L 67 18 136/80 96 05/23/17 18:00 05/23/17 18:00 05/23/17 18:00 05/23/17 18:00 05/23/17 14:30 Intake & Output 05/20/17 05/21/17 05/22/17 05/23/17 23:59 23:59 23:59 23:59 Intake Total 0 0 300 Output Total 2 Balance 0 -2 300 Weight 175 lb Neck: Supple Negative JVD No Bruit Cardiovascular: S1 S2 Regular Rate Rhythm No Murmurs Respiratory: Clear to A&P Gastrointestinal: Soft Benign Normal Bowel Sounds Echymosis Noted Ext: Negative Edema Labs: CBC, BMP 05/23/17 13:45 05/23/17 13:45 INR, PTT INR 1.16 (0.82-1.09) H 05/21/17 09:50 Assessment/Plan ASSESSMENT: 1. Syncope, probably neuro-cardiogenic syncope, possible side effect of Seroquel therapy 2. CAD angina pectoris 3. Diastolic LV dysfunction with chronic class 0-I NYHA classification congestive heart failure, compensated/euvolemic 4. HTN 5. DM 6. Hypercholesterolemia 7. History of CVA 8. Altered mental status, dementia 9. Abdominal wall hematoma, Lovenox injection site 10. 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 Acute renal insufficiency PLAN: 1. Continue Toprol XL 2. Continue Cozaar 3. Dosing of Lovenox is sub-therapeutic, it should be 80 mg twice daily and if GFR is < 30 it should be once daily, consider either Coumadin or NOAC's as an alternative 4. Echocardiography to evaluate LV size and function and valvular function Tommy Steele M.D.
[2017-05-23] MEDS: METOPROLOL SUCCINATE 50 MG TAB.SR.24H (FP) PO SCH (21:55)
[2017-05-24] MEDS: diphenhydrAMINE HCL 12.5 MG/5 ML UNIT-DOSE CUPS PO ONE ×3 (00:10→03:55)
[2017-05-24] MEDS: INSULIN SLIDING SCALE (NOVOLOG) 1 VIAL SQ SCH ×4 (06:07→21:21)
[2017-05-24 09:31] LABS: BASOPHIL 1.5 % (0-2.0); EOSINOPHIL 3.6 % (0-4.5); MCH 25.9 pg (25.7-33.7); NEUTROPHILS 58.6 % (42.8-82.8); PLATELET COUNT 261 K/MM3 (134-434); RDW 15.3 % (11.6-15.6); WHITE BLOOD COUNT 7.3 K/mm3 (4.0-10.0)
[2017-05-24] MEDS: ENOXAPARIN NA (PORCINE) 120 MG/0.8 ML DISP.SYRIN SQ SCH (09:34)
[2017-05-24] MEDS: ASPIRIN 81 MG CHEWABLE TABLETS PO SCH (09:35)
[2017-05-24] MEDS: METOPROLOL SUCCINATE 50 MG TAB.SR.24H (FP) PO SCH ×2 (09:35→21:22)
[2017-05-24] MEDS: LOSARTAN POTASSIUM 50 MG TABLET (FP) PO SCH (09:35)
--- NOTE | 2017-05-24 09:48 | EKG ---
Test Reason : Blood Pressure : / mmHG Vent. Rate : 066 BPM Atrial Rate : 066 BPM P-R Int : 154 ms QRS Dur : 082 ms QT Int : 400 ms P-R-T Axes : 054 016 030 degrees QTc Int : 419 ms NORMAL SINUS RHYTHM NORMAL ECG WHEN COMPARED WITH ECG OF 21-MAY-2017 10:06, NO SIGNIFICANT CHANGE WAS FOUND Confirmed by MD ASIA, JAVIER ([id number]) on 05/24/2017 9:48:48 AM Referred By: Bianca MYERS Confirmed By:JAVIER BETANCOURT MD
--- NOTE | 2017-05-24 09:48 | PN ---
Progress Note (short form) - Note Progress Note: Chief Complaint: Events noted notes reviewed, grand daughter at the bedside, patient denies any chest pain or dyspnea History of Present Illness: Seen and examined on telemetry. Events noted notes reviewed, grand daughter at the bedside, patient denies any chest pain or dyspnea Sinus rhythm is noted - Current Medication List Current Medications Aspirin (Asa -) 81 mg PO DAILY [facility] Last Admin: 05/24/17 09:35 Dose: 81 mg Enoxaparin Sodium (Lovenox -) 120 mg SQ DAILY [facility] Last Admin: 05/24/17 09:34 Dose: 120 mg Sodium Chloride (Normal Saline -) 1,000 mls @ 75 mls/hr IV ASDIR [facility] Last Admin: 05/23/17 13:51 Dose: 75 mls/hr Insulin Aspart (Novolog Vial Sliding Scale -) 1 vial SQ ACHS [facility] PRN Reason: Protocol Last Admin: 05/24/17 06:07 Dose: Not Given Losartan Potassium (Cozaar -) 50 mg PO DAILY [facility] Last Admin: 05/24/17 09:35 Dose: 50 mg Metoprolol Succinate (Toprol Xl -) 50 mg PO BID [facility] Last Admin: 05/24/17 09:35 Dose: 50 mg Risperidone (Risperdal -) 0.5 mg PO DAILY [facility] Last Admin: 05/24/17 09:35 Dose: 0.5 mg - Review of Systems Constitutional: denies: Chills, Fever Cardiovascular: As Noted Above Respiratory: denies: Cough or Sputum Production Gastrointestinal: denies: Nausea, Vomiting, Diarrhea, Constipation or Abdominal Discomfort Musculoskeletal: No symptoms Reported Neurological: denies: Dizziness or Headaches - Objective Vital Signs: Last Vital Signs Temp Pulse Resp BP Pulse Ox 98 F 70 14 170/86 95 05/24/17 09:30 05/24/17 09:30 05/24/17 09:30 05/24/17 09:30 05/24/17 06:00 Intake & Output 05/21/17 05/22/17 05/23/17 05/24/17 23:59 23:59 23:59 23:59 Intake Total 0 0 310 900 Output Total 2 Balance 0 -2 310 900 Weight 175 lb Neck: Supple Negative JVD No Bruit Cardiovascular: S1 S2 Regular Rate Rhythm No Murmurs Respiratory: Clear to A&P Gastrointestinal: Soft Benign Normal Bowel Sounds Echymosis Noted Ext: Negative Edema Labs: Troponin, BNP 05/23/17 05/23/17 13:45 19:45 Troponin I < 0.02 < 0.02 CBC, BMP 05/24/17 08:50 BMP pending from this AM Assessment/Plan ASSESSMENT: 1. Syncope, probably neuro-cardiogenic syncope, possible side effect of Seroquel therapy 2. CAD angina pectoris 3. Diastolic LV dysfunction with chronic class 0-I NYHA classification congestive heart failure, compensated/euvolemic 4. HTN 5. DM 6. Hypercholesterolemia 7. History of CVA 8. Altered mental status, dementia 9. Abdominal wall hematoma, Lovenox injection site 10. 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 Acute renal insufficiency PLAN: 1. Continue Toprol XL 2. Continue Cozaar 3. As outlined dosing of Lovenox is sub-therapeutic, it should be 80 mg twice daily and if GFR is < 30 it should be once daily, as an alternative consider either Coumadin or NOAC's 4. Echocardiography to evaluate LV size and function and valvular function Tommy Steele M.D.
[2017-05-24] MEDS ORDERED: risperiDONE 0.5 MG TABLET (FP) PO SCH (10:00)
[2017-05-24 10:22] LABS: ALBUMIN 3.2 g/dl (3.4-5.0); ALK PHOS 44 U/L (45-117); ANION GAP 8 (8-16); CALCIUM 9.1 mg/dL (8.5-10.1); CO2 26 mmol/L (21-32); CREATININE 1.2 mg/dL (0.55-1.02); GLUCOSE,RANDOM 150 mg/dL (74-106); SGOT/AST 20 U/L (15-37); SGPT/ALT 24 U/L (12-78); TOT PROT 6.9 g/dl (6.4-8.2)
--- NOTE | 2017-05-24 12:37 | PN ---
Physical Exam: SUBJECTIVE: Patient seen and examined with her son at the bedside. As per son, patient slept poorly last night and was given Benadryl with little effect. OBJECTIVE: Patient was hypotensive yesterday and a rapid response was called, then a code cruz Hypotension resolved with 500cc of fluids, neuro evaluation notes reviewed Discussed with cardiology, and patient dosing of home Lovenox is sub- therapeutic. Will change to Lovenox 80mg BID (GFR 42.5) Echocardiography to evaluate LV size and function and valvular function in the morning Started on Risperdal by Psych yesterday No overnight events Vital Signs Period Temp Pulse Resp BP Sys/Cruz Pulse Ox Last 24 Hr 97.3 F-98.9 F 67-78 14-18 91-170/62-86 94-96 GENERAL: The patient is awake, alert, and fully oriented, in no acute distress. HEAD: Normal with no signs of trauma. EYES: PERRL, extraocular movements intact, sclera anicteric, conjunctiva clear. No ptosis. ENT: Ears normal, nares patent, oropharynx clear without exudates, moist mucous membranes. NECK: Trachea midline, full range of motion, supple. LUNGS: Breath sounds equal, clear to auscultation bilaterally ABDOMEN: Soft, nontender, nondistended,bruising, multiple areas of bruising and hematoma to lower abdomen EXTREMITIES: no edema. NEUROLOGICAL: Normal speech, unsteady gait, periods of confusion Laboratory Results - last 24 hr 05/23/17 05/23/17 05/23/17 13:45 13:45 13:45 WBC 8.0 RBC 5.39 H Hgb 14.0 Hct 43.3 MCV 80.3 MCH 26.0 MCHC 32.3 RDW 15.3 Plt Count 286 MPV 8.3 Neutrophils % 74.7 D Lymphocytes % 14.0 D Monocytes % 9.6 Eosinophils % 1.0 Basophils % 0.7 Sodium 142 Potassium 4.0 Chloride 104 Carbon Dioxide 26 Anion Gap 12 BUN 19 H D Creatinine 1.4 H D Creat Clearance w eGFR 35.57 POC Glucometer Random Glucose 133 H Calcium 9.1 Total Bilirubin 0.9 D AST 19 ALT 25 Alkaline Phosphatase 50 Troponin I < 0.02 Total Protein 6.8 Albumin 3.4 05/23/17 05/23/17 05/23/17 17:49 19:45 21:54 WBC RBC Hgb Hct MCV MCH MCHC RDW Plt Count MPV Neutrophils % Lymphocytes % Monocytes % Eosinophils % Basophils % Sodium Potassium Chloride Carbon Dioxide Anion Gap BUN Creatinine Creat Clearance w eGFR POC Glucometer 114 190 Random Glucose Calcium Total Bilirubin AST ALT Alkaline Phosphatase Troponin I < 0.02 Total Protein Albumin 05/24/17 05/24/17 05/24/17 06:00 08:50 08:50 WBC 7.3 RBC 5.44 H Hgb 14.1 Hct 44.1 MCV 81.0 MCH 25.9 MCHC 32.0 RDW 15.3 Plt Count 261 MPV 8.0 Neutrophils % 58.6 D Lymphocytes % 26.3 D Monocytes % 10.0 Eosinophils % 3.6 D Basophils % 1.5 Sodium 142 Potassium 3.8 Chloride 108 H Carbon Dioxide 26 Anion Gap 8 BUN 19 H Creatinine 1.2 H Creat Clearance w eGFR 42.50 POC Glucometer 118 Random Glucose 150 H Calcium 9.1 Total Bilirubin 1.0 AST 20 ALT 24 Alkaline Phosphatase 44 L Troponin I Total Protein 6.9 Albumin 3.2 L Active Medications Generic Name Dose Route Start Last Admin Trade Name Freq PRN Reason Stop Dose Admin Aspirin 81 mg 05/22/17 10:00 05/24/17 09:35 Asa - PO 81 mg DAILY MACKENZIE Administration Enoxaparin Sodium 80 mg 05/25/17 10:00 Lovenox - SQ BID [facility] Insulin Aspart 1 vial 05/22/17 22:00 05/24/17 12:21 Novolog Vial Sliding Scale - SQ Not Given ACHS [facility] Protocol Losartan Potassium 50 mg 05/22/17 10:00 05/24/17 09:35 Cozaar - PO 50 mg DAILY MACKENZIE Administration Metoprolol Succinate 50 mg 05/23/17 12:21 05/24/17 09:35 Toprol Xl - PO 50 mg BID MACKENZIE Administration Risperidone 0.5 mg 05/24/17 10:00 05/24/17 09:35 Risperdal - PO 0.5 mg DAILY MACKENZIE Administration ASSESSMENT/PLAN: Patient is an 86 year old female with a significant past medical history of HTN , DM II (on Metformin), HLD, DVT, PE in 2000 surgical hx, requiring lifelong Lovenox. She was admitted on 05/21/2017 for AMS. Neuro: Altered mental status - back to baseline Acute Metabolic encepholopathy - likely due to advancing dementia A/P: Head CT 05/21/2017 with no evidence of ICH, chronic post ischemic encephalomalacia, right frontal lobe, no CT evidence of acute territorial ischemicl changes. Brain MRI 05/21/2017 shows no acute infarct, right frontal cortica/subcortical chronic infarct. Small chronic bilateral cerebellar infarcts seen. 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 Fluids: Monitor PO intake Electrolytes: monitor Nutrition: diabetic diet Prophylaxis: DVT: Lovenox 80mg BID GI: deferred Disposition: Anticipate d/c tomorrow with home VNS after echocardiogram. Full code. Visit type - Emergency Visit Emergency Visit: Yes ED Registration Date: 05/21/17 Care time: The patient presented to the Emergency Department on the above date and was hospitalized for further evaluation of their emergent condition. - New Patient This patient is new to me today: No - Critical Care Critical Care patient: No - Discharge Referral Referred to [facility] No
--- NOTE | 2017-05-24 14:06 | CONS ---
DATE OF CONSULTATION: 05/23/2017 REQUESTING PHYSICIAN: Hospitalist. CHIEF COMPLAINT: A syncopal episode, cardiovascular evaluation. HISTORY OF PRESENT ILLNESS: The history was obtained from the son who was at the bedside. 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 Seroquel therapy was initiated for management of the above noted altered mental status. The patient currently is awake and alert and does not appear to be in any distress but according to the son that she has abnormal right upper extremity movements which have persisted since her cerebrovascular event several years ago. The patient denies any chest discomfort. The patient denies any dyspnea, orthopnea, or paroxysmal nocturnal dyspnea. The patient denies any peripheral edema. The patient denies any palpitations, dizziness, or light-headedness. 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 SOCIAL HISTORY: Nonsmoker. FAMILY HISTORY: No history of coronary artery disease. ALLERGIES: None reported. MEDICAL THERAPY: Currently include: 1. Aspirin 81 mg once a day. 2. Lovenox 120 mg once a day. 3. Insulin coverage. 4. Losartan 50 mg once a day. 5. Toprol XL 50 mg twice a day. 6. Risperdal 0.5 mg once daily. REVIEW OF SYSTEMS: Head and Neck: Denies headache, photophobia, or blurring of vision. Respiratory: No cough or sputum production. Cardiovascular: As noted above. Gastrointestinal: Denies nausea, vomiting, diarrhea, or abdominal discomfort. Genitourinary: No symptoms reported. PHYSICAL EXAMINATION: Vital Signs: Blood pressure is 136/80 mmHg, pulse rate is 67 beats per minute. Head and Neck: Pupils are equal and reactive to light and accommodation. Extraocular muscles are intact. Anicteric sclerae. Negative JVD. No bruit appreciated. Lungs: Clear to auscultation and percussion. Cardiovascular: S1, S2 regular. No murmurs appreciated. Abdomen: Soft, benign, and normoactive bowel sounds. Extremities: Negative edema. Distal pulses 1+. No calf tenderness. Electrocardiogram reveals a sinus rhythm within normal limits. No prior EKG is available for comparison. CBC revealed a white blood count of 8.0, hemoglobin 14.0, and platelet count 286. INR 1.16. Basic metabolic profile with a sodium of 142, potassium 4.0, BUN of 19, creatinine 1.4, and glucose of 133 with a normal liver profile. ASSESSMENT: 1. Syncopal episode probable neurocardiogenic syncope possible side-effects of Seroquel therapy. 2. Coronary artery disease, angina pectoris. 3. Diastolic left ventricular dysfunction with chronic class 0 to 1 [place] [employer] classification left ventricular failure compensated/ euvolemic. 4. Hypertensive cardiovascular disease. 5. Diabetes mellitus. 6. Hypercholesterolemia. 7. History of cerebrovascular disease. 8. Altered mental status, dementia. 9. Abdominal wall hematoma probable Lovenox injection site reaction. 10. 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 11. Acute renal insufficiency. RECOMMENDATION: 1. Continuation of Toprol XL. 2. Continuation of Cozaar. 3. Dosing of Lovenox is subtherapeutic, this should be 80 mg twice daily and if glomerular infiltration rate is less than 30, it should be once daily. Consider either Coumadin or new oral anticoagulant agent as an alternative. 4. Echocardiography for evaluation of left ventricular size and function. Thank you for your referral. AMADOR FERRARO M.D. [id number]
[2017-05-25 03:46] VITALS: TEMP 98.1
[2017-05-25] MEDS: INSULIN SLIDING SCALE (NOVOLOG) 1 VIAL SQ SCH (06:36)
[2017-05-25 06:42] VITALS: BP 164/94; PULSE 84
[2017-05-25] MEDS ORDERED: risperiDONE 0.5 MG TABLET (FP) PO ONE (07:00)
--- NOTE | 2017-05-25 07:32 | DS ---
Physical Exam: SUBJECTIVE: Patient seen and examined at the bedside. Daughter asking to discharge her mother now. Daughter refusing further workup, refusing echo. States she will get an echo out patient. Daughter states that she feels her mother's mentation will improve at home. OBJECTIVE: Lovenox changed to therapeutic dose of 80mg BID Daughter made aware not to discontinue Lovenox 120mg as it is subtherapeutic She is in agreement. Lovenox 80mg BID called in to home pharmacy. Vital Signs Period Temp Pulse Resp BP Sys/Cruz Pulse Ox Last 24 Hr 97.6 F-98.6 F 70-86 14-20 142-179/60-94 94-95 PHYSICAL EXAM GENERAL: The patient is awake, alert, and fully oriented, in no acute distress - restless HEAD: Normal with no signs of trauma. EYES: PERRL, extraocular movements intact, sclera anicteric, conjunctiva clear. No ptosis. ENT: Ears normal, nares patent, oropharynx clear without exudates, moist mucous membranes. NECK: Trachea midline, full range of motion, supple. LUNGS: Breath sounds equal, clear to auscultation bilaterally ABDOMEN: Soft, nontender, nondistended,bruising, multiple areas of bruising and hematoma to lower abdomen EXTREMITIES: no edema. NEUROLOGICAL: Normal speech, unsteady gait, periods of confusion LABS Laboratory Results - last 24 hr 05/24/17 05/24/17 05/24/17 08:50 08:50 12:21 WBC 7.3 RBC 5.44 H Hgb 14.1 Hct 44.1 MCV 81.0 MCH 25.9 MCHC 32.0 RDW 15.3 Plt Count 261 MPV 8.0 Neutrophils % 58.6 D Lymphocytes % 26.3 D Monocytes % 10.0 Eosinophils % 3.6 D Basophils % 1.5 Sodium 142 Potassium 3.8 Chloride 108 H Carbon Dioxide 26 Anion Gap 8 BUN 19 H Creatinine 1.2 H Creat Clearance w eGFR 42.50 POC Glucometer 123 Random Glucose 150 H Calcium 9.1 Total Bilirubin 1.0 AST 20 ALT 24 Alkaline Phosphatase 44 L Total Protein 6.9 Albumin 3.2 L 05/24/17 05/24/17 05/25/17 17:35 21:21 05:23 WBC RBC Hgb Hct MCV MCH MCHC RDW Plt Count MPV Neutrophils % Lymphocytes % Monocytes % Eosinophils % Basophils % Sodium Potassium Chloride Carbon Dioxide Anion Gap BUN Creatinine Creat Clearance w eGFR POC Glucometer 106 125 145 Random Glucose Calcium Total Bilirubin AST ALT Alkaline Phosphatase Total Protein Albumin HOSPITAL COURSE: Date of Admission:05/21/17 Date of Discharge: 05/25/17 ASSESSMENT/PLAN: Patient is an 86 year old female with a significant past medical history of HTN , DM II (on Metformin), HLD, DVT, PE in 2000 surgical hx, requiring lifelong Lovenox. She was admitted on 05/21/2017 for AMS. She was a rapid response 2 days ago secondary to hypotension after taking Seroquel. She is now back to her baseline. Neuro: Altered mental status - back to baseline Acute Metabolic encepholopathy - likely due to advanced dementia A/P: Head CT 05/21/2017 with no evidence of ICH, chronic post ischemic encephalomalacia, right frontal lobe, no CT evidence of acute territorial ischemicl changes. Brain MRI 05/21/2017 shows no acute infarct, right frontal cortica/subcortical chronic infarct. Small chronic bilateral cerebellar infarcts seen. 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 at [facility] Home Lovenox 120mg daily, changed to therapeutic dose of Lovenox 80mg BID Daughter aware to stop the Lovenox 120mg Cardiology: Hypertension - chronic A/P: Decreased Metoprolol back to home dose of 50mg BID On Losartan daily Discussed with cardiology, best to keep systolic in the 140s Endocrine: Diabetes A/P: Continue with diabetic diet , on home metformin Integumentary: Abdominal CT shows small area of hematoma on lower abdomen likely secondary to Lovenox injections No surgical interventions, warm compresses, rotate injection sites to avoid further development of hematomas Monitor Disposition: Discharge today back home with family. Daughter refusing inpatient echo and agrees to do echo as an outpatient. Minutes to complete discharge: 60 Discharge Summary Reason For Visit: HISTORY OF STROKE; ALTERED MENTAL STATUS Current Active Problems Abdominal wall cellulitis (Acute) Abdominal wall hematoma (Acute) Altered mental status (Acute) Dementia (Acute) H/O: CVA (cerebrovascular accident) (Acute) Condition: Improved - Instructions Diet, Activity, Other Instructions: Mrs. Cortes: Please see your primary care physician for follow up within 1 week after discharge. Please return to the ER with any persistent or worsening symptoms. New medications: Lovenox 80mg twice per day. STOP THE LOVENOX 120MG DAILY Risperdal 0.5mg daily Please get an echocardiogram with flight surveyor. Once has been referred to your. [facility] [phone] Referrals: Tommy Steele MD [Staff Physician] - Mary Beth Price MD [Primary Care Provider] - 1 Week Disposition: HOME - Home Medications Comprehensive Discharge Medication List: Ambulatory Orders Glimepiride [Amaryl -] 4 mg PO DAILY@0700 05/21/17 Losartan Potassium 50 mg PO DAILY 05/21/17 Metformin HCl [Metformin HCl ER] 1,000 mg PO BID 05/21/17 Metoprolol Succinate [Toprol XL -] 50 mg PO BID 05/21/17 Aspirin [ASA -] 81 mg PO DAILY tab.chew 05/23/17 Enoxaparin [Lovenox -] 80 mg SQ BID #60 syringe 05/25/17 Risperidone [Risperdal -] 0.5 mg PO DAILY #30 tablet 05/25/17 This patient is new to me today: No Emergency Visit: Yes ED Registration Date: 05/21/17 Care time: The patient presented to the Emergency Department on the above date and was hospitalized for further evaluation of their emergent condition. Critical Care patient: No - Discharge Referral Referred to [facility] Med [facility].: No
[2017-05-25] MEDS ORDERED: ENOXAPARIN NA (PORCINE) 80 MG/0.8 ML DISP.SYRIN SQ SCH (10:00)
== END 2017-05-25 08:56 | disposition home or self-care (01) | DRG 947 ==
LOC: JER 08:53 → JERBED 11:34 → J6S 13:30 → OBSVTOIN 05-23 14:00 → J4W 05-23 14:31
PROVIDERS: ADMIT Internal Medicine; ATTEND Nurse Practitioner Family
DX: R41.82 Altered mental status, unspecified (principal); G93.41 Metabolic encephalopathy; I25.110 Atherosclerotic heart disease of native coronary artery with unstable angina pectoris; F03.90 Unspecified dementia, unspecified severity, without behavioral disturbance, psychotic disturbance, mood disturbance, and anxiety; N28.9 Disorder of kidney and ureter, unspecified; R44.0 Auditory hallucinations; S30.1XXA Contusion of abdominal wall, initial encounter; I10 Essential (primary) hypertension; E11.9 Type 2 diabetes mellitus without complications; E78.5 Hyperlipidemia, unspecified; Z86.73 Personal history of transient ischemic attack (TIA), and cerebral infarction without residual deficits; Z86.718 Personal history of other venous thrombosis and embolism; Z86.711 Personal history of pulmonary embolism; I48.91 Unspecified atrial fibrillation; X58.XXXA Exposure to other specified factors, initial encounter
CPT/HCPCS: 36415; 70450-TC; 70551-TC; 71010-TC; 76705; 80053; 81003; 81015; 82553; 82607; 83735; 84443; 84484; 85025; 85610; 87040; 87086; 93005; 93010; 97116-GP; 97161-GP; 99285-25; G0378; J1644